=== PATIENT | female | born 2000 | race Caucasian/White ===

== ENCOUNTER → 2025-03-25 11:05 | Outpatient (BNV) | payer MEDICARE, MEDICAID, SELFPAY | PROVIDERS: Visit Provider Clinical Nurse Specialist Psychiatric/Mental Health | DX: F33.2 Major depressive disorder, recurrent severe without psychotic features (principal); F43.11 Post-traumatic stress disorder, acute | CPT/HCPCS: 99223 ==

== ENCOUNTER → 2025-06-08 15:00 | Outpatient (BNV) | payer MEDICARE, MEDICAID, SELFPAY | PROVIDERS: Visit Provider Psychiatry & Neurology Psychiatry | DX: F33.2 Major depressive disorder, recurrent severe without psychotic features (principal) | CPT/HCPCS: 90869 ==

== ENCOUNTER 2025-07-05 16:00 | Outpatient (RCR) | payer MEDICARE, MEDICAID, SELFPAY ==
--- NOTE | 2025-03-25 11:13 | W.PM.TMSCONS ---
History of Present Illness General Data Date of Service: 03/25/2025 Reason for consult: Depression History of Present Illness Pt is a 25 year old who self referred for TMS consult. she states she feels very depressed, low energy, can't focus or concentrate; reports loss of enjoyment, no motivation, no interest in activities; can't watch tv or read due to poor focus. she is easily tearful. she reports daily intrusive thoughts of suicide; she reports she has looping thoughts of I dont want to be here. she denies any plan or intent to harm or kill herself. she says she used to self harm but hasn't in years; she denies having ever made a suicide attempt. She tells me she has participated in 2 rounds of DBT therapy over the years. She reports when she was younger she was diagnosed with Bipolar Disorder but more recently her providers told her her diagnosis has changed to MDD and PTSD. I have reviewed her psychiatry notes from Krystal Benavides MD who confirms that pt diagnosis is MDD and PTSD and not Bipolar Disorder. The only hypomanic episode documented was in her teens and on a medication that activated her. Her PHQ9= 24 and her GAD7=11. She rates them both as extremely difficult. Her current psychiatric prescriber is Syd Mcgee APRN from [facility] and her therapist is Sridevi Marr with [facility]. Pt states she plans to switch psychiatry services to [facility] as well. Pt reports she has a remote history of migraines in HS but none in years. Pt denies history of seizures. Pt denies history of stroke, denies cardiac symptoms, and no head injury. Pt denies any metal implants such as pacemaker or cochlear implant, no history of facial surgery or neurosurgery Pt does report recent low TSH and has a n endocrinology consult pending. . Pt current medications : viibryd 20 mg daily, hydroxyzine, ativan and melatonin. Past failed meds: celexa- worsened depression, felt flat prozac-insomnia zoloft- insomnia, loss of appetite lamictal- numb but felt it helped with SI risperdal-numb seroquel- weight gain pristiq-increased anxiety trazodone-ineffective wellbutrin-not sure belsomra-ineffective focailin = anxiety clonidine- ineffective guanfacine- ineffective lunesta- ineffective Past Psychiatric History/Medication Trials: She has had depression and anxiety since age 12. She was in foster care from age [age] due to her brothers addiction and mother unable to protect her from his addiction. She reports foster care was very difficult and she was in 7 homes and different school in those 3 years. She reports multiple failed medication trials; She reports her depression wors[facility] in [facility] Narrative: no seizures no surgeries hx of migraines as teen - none in years no cardiac issues low TSH and currently having endocrinology work up Family History: grew up with M& F and older brother; fa 2016 due to cancer; mom alive and has stage 4 neuroendocrine cancer and 2018 had liver transplant. mom= anxiety and ? 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 grad HS has certificate in leadership development and community building in past Substance History: none Trauma History: very difficult time; fostercare during HS due to brother's drug use Meds/Allergies Meds Narrative: current medications ativan 0.5mg BID hydroxyzine 100mg at bedtime melatonin 3 mg daily viibryd 10 mg daily Allergies Allergies Allergy/AdvReac Type Severity Reaction Status Date / Time No Known Allergies Allergy Verified 04/05/25 11:37 Mental Status Exam Mental Status Exam Patient Appearance: Appropriate Patient Orientation: Person, Place, Time and Situation Level of Consciousness: Awake and Appropriate Patient Behavior: Appropriate, Cooperative and Good Eye Contact Mood Description: Depressed and Anxious Affect Description: Depressed and Anxious Patient Cognition Impaired: No Ability to Follow Directions: Good Speech Pattern: Clear, Appropriate and Spontaneous Speech Memory Description: Intact Hallucinations: None Delusions: Not Present Thought Process: Distracted and Rumination Thought Content: positive for Preoccupation and positive for Suicidal Ideation (no plan or intent; describes looping thoughts of not wanting to be here -pt feels they are intrusive thoughts ) Judgement: Fair Assessment & Plan Assessment & Plan (1) Major depressive disorder, recurrent severe without psychotic features: Status: Acute Code(s): F33.2 - Major depressive disorder, recurrent severe without psychotic features (2) PTSD (post-traumatic stress disorder): Status: Acute Code(s): F43.10 - Post-traumatic stress disorder, unspecified Plan Pt is a candidate for TMS due to level of depression symptoms and lack of response to medications. She has a remote hx of one hypomanic episode as a teen which was substance induced and no other episodesor signs of Bipolar. Pt is aware of risks with TMS if Bipolar and will work with providers to monitor; She has no contraindications for TMS: no seizures, no metal implants including no pacemaker or cochlear implants. Total time managing care of this patient today __75__ minutes. Patient educated on: TMS and therapeutic strategies Informed Consent: understands
--- NOTE | 2025-05-11 13:56 | HO.TMSDAILY2 ---
TMS Daily Progress Note Daily TMS Progress Note Date of Service: 05/10/25 Week #: 1 Treatment #(10-29): 1 PHQ-9 Pre-Treatment (-): 25 PHQ-9 Most Recent (10-26): 25 ANUP-7 Pre-Treatment (0-21): 14 ANUP-7 Most Recent (0-21): 14 Q-LES-Q-SF Most Recent: 25 Reviewed: TMS Mapping/Re-mapping completed (Pt very anxious but tolerated well) Verification: I have reviewed the TMS Executor Of Estate Note and agree with the contents. The patient remains a candidate to continue TMS treatment per protocol. Assessment and Plan (1) Major depressive disorder, recurrent severe without psychotic features: Status: Acute (2) PTSD (post-traumatic stress disorder): Status: Acute Plan MT 1.01 Pt tolerated mapping and first treatment well despite some anticipatry anxiety. She will start right side treatment tomorrow Continue with TMS plan of care
--- NOTE | 2025-05-24 16:19 | P.PNPS_ITS ---
TMS Daily Progress Note Daily TMS Progress Note Date of Service: 05/11/25 Week #: 1 Treatment #(10-29): 2 PHQ-9 Pre-Treatment (-): 25 PHQ-9 Most Recent (10-26): 25 ANUP-7 Pre-Treatment (0-21): 14 ANUP-7 Most Recent (0-21): 14 Q-LES-Q-SF Most Recent: 25 Reviewed: TMS Tech Note Reviewed Verification: I have reviewed the TMS Credentialing Specialist Note and agree with the contents. The patient remains a candidate to continue TMS treatment per protocol. Assessment and Plan (1) Major depressive disorder, recurrent severe without psychotic features: Status: Acute (2) PTSD (post-traumatic stress disorder): Status: Acute Plan Continue with TMS plan of care
--- NOTE | 2025-05-24 16:20 | P.PNPS_ITS ---
TMS Daily Progress Note Daily TMS Progress Note Date of Service: 05/13/25 Week #: 1 Treatment #(10-29): 4 PHQ-9 Pre-Treatment (-): 25 PHQ-9 Most Recent (10-26): 25 ANUP-7 Pre-Treatment (0-21): 14 ANUP-7 Most Recent (0-21): 14 Q-LES-Q-SF Most Recent: 25 Reviewed: TMS Tech Note Reviewed Verification: I have reviewed the TMS Hand Washer Note and agree with the contents. The patient remains a candidate to continue TMS treatment per protocol. Assessment and Plan (1) Major depressive disorder, recurrent severe without psychotic features: Status: Acute (2) PTSD (post-traumatic stress disorder): Status: Acute Plan Continue with TMS plan of care
--- NOTE | 2025-06-01 14:05 | HO.TMSDAILY2 ---
TMS Daily Progress Note Daily TMS Progress Note Date of Service: 05/27/25 Week #: 3 Treatment #(10-29): 12 PHQ-9 Pre-Treatment (-): 25 PHQ-9 Most Recent (10-26): 23 ANUP-7 Pre-Treatment (0-21): 14 ANUP-7 Most Recent (0-21): 14 Q-LES-Q-SF Most Recent: 25 Reviewed: TMS Tech Note Reviewed Verification: I have reviewed the TMS Graphic Design Professor Note and agree with the contents. The patient remains a candidate to continue TMS treatment per protocol. Assessment and Plan (1) Major depressive disorder, recurrent severe without psychotic features: Status: Acute (2) PTSD (post-traumatic stress disorder): Status: Acute Plan Met with patient today in person as she had some concerns and questions about medications; We discussed options and I answered questions she had; She will follow up with her outpt provider re any medication changes. Continue with TMS plan of care Total time managing care of this patient today: 25 minutes.
--- NOTE | 2025-06-08 13:17 | HO.TMSDAILY2 ---
TMS Daily Progress Note Daily TMS Progress Note Date of Service: 06/01/25 Week #: 3 Treatment #(-): 14 PHQ-9 Pre-Treatment (1-): 25 PHQ-9 Most Recent (10-26): 21 ANUP-7 Pre-Treatment (0-21): 14 ANUP-7 Most Recent (0-21): 13 Q-LES-Q-SF Most Recent: 25 Reviewed: TMS Tech Note Reviewed Verification: I have reviewed the TMS Brim Pouncer Machine Operator Note and agree with the contents. The patient remains a candidate to continue TMS treatment per protocol. Assessment and Plan (1) Major depressive disorder, recurrent severe without psychotic features: Status: Acute (2) PTSD (post-traumatic stress disorder): Status: Acute Plan Continue with TMS plan of care Total time managing care of this patient today: 25 minutes.
--- NOTE | 2025-06-08 13:19 | HO.TMSDAILY2 ---
TMS Daily Progress Note Daily TMS Progress Note Date of Service: 06/03/25 Week #: 4 Treatment #(10-29): 16 PHQ-9 Pre-Treatment (-): 25 PHQ-9 Most Recent (10-26): 21 ANUP-7 Pre-Treatment (0-21): 14 ANUP-7 Most Recent (0-21): 13 Q-LES-Q-SF Most Recent: 25 Reviewed: TMS Tech Note Reviewed Verification: I have reviewed the TMS Jewelry Bench Worker Note and agree with the contents. The patient remains a candidate to continue TMS treatment per protocol. Assessment and Plan (1) Major depressive disorder, recurrent severe without psychotic features: Status: Acute (2) PTSD (post-traumatic stress disorder): Status: Acute Plan Pt will be remapped due to her concerns of not improving . Continue with TMS plan of care Total time managing care of this patient today: 25 minutes.
--- NOTE | 2025-06-08 22:17 | P.PNPS_ITS ---
TMS Daily Progress Note Daily TMS Progress Note Date of Service: 06/08/25 Week #: 4 Treatment #(10-29): 16 PHQ-9 Pre-Treatment (-): 25 PHQ-9 Most Recent (10-26): 21 ANUP-7 Pre-Treatment (0-21): 14 ANUP-7 Most Recent (0-21): 13 Q-LES-Q-SF Most Recent: 25 Reviewed: TMS Mapping/Re-mapping completed Verification: I have reviewed the TMS Risk Consulting Treasury Director Note and agree with the contents. The patient remains a candidate to continue TMS treatment per protocol. Assessment and Plan (1) Major depressive disorder, recurrent severe without psychotic features: Status: Acute (2) PTSD (post-traumatic stress disorder): Status: Acute Plan pt tolerated remapping some changes to position and MT . Discussed with pt sedation and unlikely all day sec to tms discussed with char Nuñez lowering hydroxyzine 100 mg
--- NOTE | 2025-06-21 10:37 | P.PNPS_ITS ---
TMS Daily Progress Note Daily TMS Progress Note Date of Service: 05/20/25 Week #: 2 Treatment #(10-29): 8 PHQ-9 Pre-Treatment (-): 25 PHQ-9 Most Recent (10-26): 24 ANUP-7 Pre-Treatment (0-): 14 ANUP-7 Most Recent (0-): 13 Q-LES-Q-SF Most Recent: 25 Reviewed: TMS Tech Note Reviewed Verification: I have reviewed the TMS Entertainment Dancer Note and agree with the contents. The patient remains a candidate to continue TMS treatment per protocol. Assessment and Plan (1) Major depressive disorder, recurrent severe without psychotic features: Status: Acute Plan Has a difficult time with MT being inc feels uncomfortable
--- NOTE | 2025-06-21 10:37 | HO.TMSDAILY2 ---
TMS Daily Progress Note Daily TMS Progress Note Date of Service: 05/12/25 Week #: 1 Treatment #(10-29): 3 PHQ-9 Pre-Treatment (-): 25 PHQ-9 Most Recent (10-26): 25 ANUP-7 Pre-Treatment (0-21): 14 AUNP-7 Most Recent (0-21): 14 Q-LES-Q-SF Most Recent: 25 Reviewed: TMS Tech Note Reviewed Verification: I have reviewed the TMS Behavioral Technician Note and agree with the contents. The patient remains a candidate to continue TMS treatment per protocol. Assessment and Plan (1) Major depressive disorder, recurrent severe without psychotic features: Status: Acute (2) PTSD (post-traumatic stress disorder): Status: Acute Plan pt flat cooperative with tx no complaints of side effects
--- NOTE | 2025-06-21 10:37 | HO.TMSDAILY2 ---
TMS Daily Progress Note Daily TMS Progress Note Date of Service: 05/14/25 Week #: 1 Treatment #(10-29): 5 PHQ-9 Pre-Treatment (-): 25 PHQ-9 Most Recent (10-26): 25 ANUP-7 Pre-Treatment (0-21): 14 ANUP-7 Most Recent (0-21): 14 Q-LES-Q-SF Most Recent: 25 Reviewed: TMS Tech Note Reviewed Verification: I have reviewed the TMS School Business Manager Note and agree with the contents. The patient remains a candidate to continue TMS treatment per protocol. Assessment and Plan (1) Major depressive disorder, recurrent severe without psychotic features: Status: Acute (2) PTSD (post-traumatic stress disorder): Status: Acute Plan Pt tolerating tx significant depression
--- NOTE | 2025-06-21 10:37 | HO.TMSDAILY2 ---
TMS Daily Progress Note Daily TMS Progress Note Date of Service: 05/18/25 Week #: 2 Treatment #(10-29): 16 PHQ-9 Pre-Treatment (-): 25 PHQ-9 Most Recent (10-26): 25 ANUP-7 Pre-Treatment (0-21): 14 ANUP-7 Most Recent (0-21): 14 Q-LES-Q-SF Most Recent: 25 Reviewed: TMS Tech Note Reviewed Verification: I have reviewed the TMS Title Department Manager Note and agree with the contents. The patient remains a candidate to continue TMS treatment per protocol. Assessment and Plan (1) Major depressive disorder, recurrent severe without psychotic features: Status: Acute (2) PTSD (post-traumatic stress disorder): Status: Acute Plan cont plan of care L/R tx
--- NOTE | 2025-06-21 10:37 | HO.TMSDAILY2 ---
TMS Daily Progress Note Daily TMS Progress Note Date of Service: 05/19/25 Week #: 2 Treatment #(10-29): 7 PHQ-9 Pre-Treatment (-): 25 PHQ-9 Most Recent (10-26): 24 ANUP-7 Pre-Treatment (0-21): 14 ANUP-7 Most Recent (0-21): 13 Q-LES-Q-SF Most Recent: 25 Reviewed: TMS Tech Note Reviewed Verification: I have reviewed the TMS Car Pilot Note and agree with the contents. The patient remains a candidate to continue TMS treatment per protocol. Assessment and Plan (1) Major depressive disorder, recurrent severe without psychotic features: Status: Acute (2) PTSD (post-traumatic stress disorder): Status: Acute Plan pt will now be able to see theraoust on sat
--- NOTE | 2025-06-21 10:37 | HO.TMSDAILY2 ---
TMS Daily Progress Note Daily TMS Progress Note Date of Service: 05/21/25 Week #: 2 Treatment #(10-29): 9 PHQ-9 Pre-Treatment (-): 25 PHQ-9 Most Recent (10-26): 24 ANUP-7 Pre-Treatment (0-21): 14 ANUP-7 Most Recent (0-21): 13 Q-LES-Q-SF Most Recent: 25 Reviewed: TMS Tech Note Reviewed Verification: I have reviewed the TMS Ceramics Engineer Note and agree with the contents. The patient remains a candidate to continue TMS treatment per protocol. Assessment and Plan (1) Major depressive disorder, recurrent severe without psychotic features: Status: Acute (2) PTSD (post-traumatic stress disorder): Status: Acute Plan Patient's MT % what 105 has been having a hard time tolerating more rapid increases
--- NOTE | 2025-06-21 10:38 | HO.TMSDAILY2 ---
TMS Daily Progress Note Daily TMS Progress Note Date of Service: 05/26/25 Week #: 3 Treatment #(10-29): 11 PHQ-9 Pre-Treatment (-): 25 PHQ-9 Most Recent (10-26): 23 ANUP-7 Pre-Treatment (0-21): 14 ANUP-7 Most Recent (0-): 13 Q-LES-Q-SF Most Recent: 25 Reviewed: TMS Tech Note Reviewed Verification: I have reviewed the TMS Solar Energy System Installer Note and agree with the contents. The patient remains a candidate to continue TMS treatment per protocol. Assessment and Plan (1) Major depressive disorder, recurrent severe without psychotic features: Status: Acute Plan Continue TMS treatment plan patient was able to increase the MT percentage had pretreated with Tylenol no major improvement to this point
--- NOTE | 2025-06-21 10:38 | P.PNPS_ITS ---
TMS Daily Progress Note Daily TMS Progress Note Date of Service: 05/28/25 Week #: 3 Treatment #(10-29): 13 PHQ-9 Pre-Treatment (-): 25 PHQ-9 Most Recent (10-26): 23 ANUP-7 Pre-Treatment (0-21): 14 ANUP-7 Most Recent (0-21): 14 Q-LES-Q-SF Most Recent: 25 Reviewed: TMS Tech Note Reviewed Verification: I have reviewed the TMS Clinical Mental Health Counselor Note and agree with the contents. The patient remains a candidate to continue TMS treatment per protocol. Assessment and Plan (1) Major depressive disorder, recurrent severe without psychotic features: Status: Acute Plan Patient tolerating treatment no significant improvement to this point. Optimistic about upcoming move to a new housing situation
--- NOTE | 2025-06-21 10:38 | HO.TMSDAILY2 ---
TMS Daily Progress Note Daily TMS Progress Note Date of Service: 06/02/25 Week #: 3 Treatment #(10-29): 15 PHQ-9 Pre-Treatment (-): 25 PHQ-9 Most Recent (10-26): 21 ANUP-7 Pre-Treatment (0-21): 14 ANUP-7 Most Recent (0-21): 13 Q-LES-Q-SF Most Recent: 25 Reviewed: TMS Tech Note Reviewed Verification: I have reviewed the TMS Director Global Intelligence Note and agree with the contents. The patient remains a candidate to continue TMS treatment per protocol. Assessment and Plan (1) Major depressive disorder, recurrent severe without psychotic features: Status: Acute Plan No significant adverse effects patient tolerating treatment no significant improvement to this point
--- NOTE | 2025-06-21 10:38 | HO.TMSDAILY2 ---
TMS Daily Progress Note Daily TMS Progress Note Date of Service: 06/04/25 Week #: 4 Treatment #(10-29): 17 PHQ-9 Pre-Treatment (-): 25 PHQ-9 Most Recent (10-26): 21 ANUP-7 Pre-Treatment (0-21): 14 ANUP-7 Most Recent (0-21): 13 Q-LES-Q-SF Most Recent: 25 Reviewed: TMS Tech Note Reviewed Verification: I have reviewed the TMS Corporate Statistical Financial Analyst Note and agree with the contents. The patient remains a candidate to continue TMS treatment per protocol. Assessment and Plan (1) Major depressive disorder, recurrent severe without psychotic features: Status: Acute Plan Patient tolerating treatment with some level of discomfort MT % 120 patient asking for consideration of Re mapping given lack of progress to this point
--- NOTE | 2025-06-23 15:53 | HO.TMSDAILY2 ---
TMS Daily Progress Note Daily TMS Progress Note Date of Service: 06/23/25 Week #: 6 Treatment #(10-29): 29 PHQ-9 Pre-Treatment (-): 25 PHQ-9 Most Recent (10-26): 22 ANUP-7 Pre-Treatment (0-21): 14 ANUP-7 Most Recent (0-21): 12 Q-LES-Q-SF Most Recent: 25 Reviewed: TMS Tech Note Reviewed Verification: I have reviewed the TMS Machine Tailer Note and agree with the contents. The patient remains a candidate to continue TMS treatment per protocol. Assessment and Plan (1) Major depressive disorder, recurrent severe without psychotic features: Status: Acute
--- NOTE | 2025-07-19 09:51 | HO.TMSDAILY2 ---
TMS Daily Progress Note Daily TMS Progress Note Date of Service: 05/24/25 Week #: 2 Treatment #(10-29): 10 PHQ-9 Pre-Treatment (-): 25 PHQ-9 Most Recent (10-26): 23 ANUP-7 Pre-Treatment (0-21): 14 ANUP-7 Most Recent (0-21): 14 CGI-I Most Recent: 0 = Not Assessed Q-LES-Q-SF Most Recent: 25 Reviewed: TMS Tech Note Reviewed Verification: I have reviewed the TMS Die Cutter Apprentice Note and agree with the contents. The patient remains a candidate to continue TMS treatment per protocol. Assessment and Plan (1) Major depressive disorder, recurrent severe without psychotic features: Status: Acute Plan Continue TMS treatment plan
--- NOTE | 2025-07-19 09:52 | P.PNPS_ITS ---
TMS Daily Progress Note Daily TMS Progress Note Date of Service: 06/10/25 Week #: 4 Treatment #(10-29): 20 PHQ-9 Pre-Treatment (1-): 25 PHQ-9 Most Recent (10-26): 22 ANUP-7 Pre-Treatment (0-21): 14 ANUP-7 Most Recent (0-21): 13 CGI-I Most Recent: 0 = Not Assessed Q-LES-Q-SF Most Recent: 25 Reviewed: TMS Tech Note Reviewed Verification: I have reviewed the TMS Project Structural Engineer Note and agree with the contents. The patient remains a candidate to continue TMS treatment per protocol. Assessment and Plan (1) Major depressive disorder, recurrent severe without psychotic features: Status: Acute Plan Continue TMS treatment plan
--- NOTE | 2025-07-19 09:54 | P.PNPS_ITS ---
TMS Daily Progress Note Daily TMS Progress Note Date of Service: 06/14/25 Week #: 5 Treatment #(10-29): 22 PHQ-9 Pre-Treatment (1-): 25 PHQ-9 Most Recent (10-26): 23 ANUP-7 Pre-Treatment (0-21): 14 ANUP-7 Most Recent (0-21): 14 CGI-I Most Recent: 0 = Not Assessed Q-LES-Q-SF Most Recent: 25 Reviewed: TMS Tech Note Reviewed Verification: I have reviewed the TMS Certified Medical Assistant Note and agree with the contents. The patient remains a candidate to continue TMS treatment per protocol. Assessment and Plan (1) Major depressive disorder, recurrent severe without psychotic features: Status: Acute Plan Continue TMS treatment plan
--- NOTE | 2025-07-19 09:55 | P.PNPS_ITS ---
TMS Daily Progress Note Daily TMS Progress Note Date of Service: 06/17/25 Week #: 5 Treatment #(10-29): 25 PHQ-9 Pre-Treatment (1-): 25 PHQ-9 Most Recent (10-26): 23 ANUP-7 Pre-Treatment (0-21): 14 ANUP-7 Most Recent (0-21): 14 CGI-I Most Recent: 0 = Not Assessed Q-LES-Q-SF Most Recent: 25 Reviewed: TMS Tech Note Reviewed Verification: I have reviewed the TMS Advertising Account Representative Note and agree with the contents. The patient remains a candidate to continue TMS treatment per protocol. Assessment and Plan (1) Major depressive disorder, recurrent severe without psychotic features: Status: Acute Plan Continue TMS treatment plan
--- NOTE | 2025-07-19 09:55 | P.PNPS_ITS ---
TMS Daily Progress Note Daily TMS Progress Note Date of Service: 06/15/25 Week #: 5 Treatment #(10-29): 23 PHQ-9 Pre-Treatment (1-): 25 PHQ-9 Most Recent (10-26): 23 ANUP-7 Pre-Treatment (0-21): 14 ANUP-7 Most Recent (0-21): 14 CGI-I Most Recent: 0 = Not Assessed Q-LES-Q-SF Most Recent: 25 Reviewed: TMS Tech Note Reviewed Verification: I have reviewed the TMS Operations Business Partner Note and agree with the contents. The patient remains a candidate to continue TMS treatment per protocol. Assessment and Plan (1) Major depressive disorder, recurrent severe without psychotic features: Status: Acute Plan Continue TMS treatment plan
--- NOTE | 2025-07-19 09:56 | HO.TMSDAILY2 ---
TMS Daily Progress Note Daily TMS Progress Note Date of Service: 06/21/25 Week #: 6 Treatment #(10-29): 27 PHQ-9 Pre-Treatment (-): 25 PHQ-9 Most Recent (10-26): 22 ANUP-7 Pre-Treatment (0-21): 14 ANUP-7 Most Recent (0-21): 12 CGI-I Most Recent: 0 = Not Assessed Q-LES-Q-SF Most Recent: 25 Reviewed: TMS Tech Note Reviewed Verification: I have reviewed the TMS Linux Unix Administrator Note and agree with the contents. The patient remains a candidate to continue TMS treatment per protocol. Assessment and Plan (1) Major depressive disorder, recurrent severe without psychotic features: Status: Acute Plan Continue TMS treatment plan
--- NOTE | 2025-07-19 09:57 | HO.TMSDAILY2 ---
TMS Daily Progress Note Daily TMS Progress Note Date of Service: 06/22/25 Week #: 6 Treatment #(10-29): 28 PHQ-9 Pre-Treatment (-): 25 PHQ-9 Most Recent (10-26): 22 ANUP-7 Pre-Treatment (0-21): 14 ANUP-7 Most Recent (0-21): 12 CGI-I Most Recent: 0 = Not Assessed Q-LES-Q-SF Most Recent: 25 Reviewed: TMS Tech Note Reviewed Verification: I have reviewed the TMS Commutator Presser Note and agree with the contents. The patient remains a candidate to continue TMS treatment per protocol. Assessment and Plan (1) Major depressive disorder, recurrent severe without psychotic features: Status: Acute Plan Continue TMS treatment plan
--- NOTE | 2025-07-19 09:58 | HO.TMSDAILY2 ---
TMS Daily Progress Note Daily TMS Progress Note Date of Service: 06/24/25 Week #: 6 Treatment #(-): 30 PHQ-9 Pre-Treatment (-): 25 PHQ-9 Most Recent (10-26): 22 ANUP-7 Pre-Treatment (0-21): 14 ANUP-7 Most Recent (0-21): 12 CGI-I Most Recent: 0 = Not Assessed Q-LES-Q-SF Most Recent: 25 Reviewed: TMS Tech Note Reviewed Verification: I have reviewed the TMS Rhinologist Note and agree with the contents. The patient remains a candidate to continue TMS treatment per protocol. Assessment and Plan (1) Major depressive disorder, recurrent severe without psychotic features: Status: Acute Plan Continue TMS treatment plan
--- NOTE | 2025-08-07 21:29 | P.PNPS_ITS ---
TMS Daily Progress Note Daily TMS Progress Note Date of Service: 06/09/25 Week #: 4 Treatment #(10-29): 19 PHQ-9 Pre-Treatment (1-): 25 PHQ-9 Most Recent (10-26): 22 ANUP-7 Pre-Treatment (0-21): 14 ANUP-7 Most Recent (0-21): 14 CGI-I Most Recent: 0 = Not Assessed Q-LES-Q-SF Most Recent: 25 Reviewed: TMS Tech Note Reviewed Verification: I have reviewed the TMS Microfabrication Engineer Manager Note and agree with the contents. The patient remains a candidate to continue TMS treatment per protocol. Assessment and Plan (1) Major depressive disorder, recurrent severe without psychotic features: Status: Acute Plan Continue TMS treatment plan remap completed yesterday questions answered
--- NOTE | 2025-08-07 21:35 | HO.TMSDAILY2 ---
TMS Daily Progress Note Daily TMS Progress Note Date of Service: 06/11/25 Week #: 5 Treatment #(10-29): 21` PHQ-9 Pre-Treatment (-): 25 PHQ-9 Most Recent (10-26): 22 ANUP-7 Pre-Treatment (0-21): 14 ANUP-7 Most Recent (0-21): 14 CGI-I Most Recent: 0 = Not Assessed Q-LES-Q-SF Most Recent: 25 Reviewed: TMS Tech Note Reviewed Verification: I have reviewed the TMS Biazzi Nitrator Operator Note and agree with the contents. The patient remains a candidate to continue TMS treatment per protocol. Assessment and Plan (1) Major depressive disorder, recurrent severe without psychotic features: Status: Acute Plan pt with gradual inc m % frustrated no clear improvement
--- NOTE | 2025-08-07 22:31 | HO.TMSDAILY2 ---
TMS Daily Progress Note Daily TMS Progress Note Date of Service: 06/16/25 Week #: 5 Treatment #(10-29): 24 PHQ-9 Pre-Treatment (-): 25 PHQ-9 Most Recent (10-26): 22 ANUP-7 Pre-Treatment (0-21): 14 ANUP-7 Most Recent (0-21): 14 CGI-I Most Recent: 0 = Not Assessed Q-LES-Q-SF Most Recent: 25 Reviewed: TMS Tech Note Reviewed Verification: I have reviewed the TMS Inspector Handbag Frames Note and agree with the contents. The patient remains a candidate to continue TMS treatment per protocol. Assessment and Plan (1) Major depressive disorder, recurrent severe without psychotic features: Status: Acute Plan Patient continues to be anxious ruminating
--- NOTE | 2025-08-07 22:37 | HO.TMSDAILY2 ---
TMS Daily Progress Note Daily TMS Progress Note Date of Service: 06/18/25 Week #: 6 Treatment #(10-29): 26 PHQ-9 Pre-Treatment (-): 25 PHQ-9 Most Recent (10-26): 22 ANUP-7 Pre-Treatment (0-21): 14 ANUP-7 Most Recent (0-21): 14 CGI-I Most Recent: 0 = Not Assessed Q-LES-Q-SF Most Recent: 25 Reviewed: TMS Tech Note Reviewed Verification: I have reviewed the TMS Sustainability Executive Director Note and agree with the contents. The patient remains a candidate to continue TMS treatment per protocol. Assessment and Plan (1) Major depressive disorder, recurrent severe without psychotic features: Status: Acute Plan Patient more reflective less agitated
--- NOTE | 2025-08-07 22:46 | HO.TMSDAILY2 ---
TMS Daily Progress Note Daily TMS Progress Note Date of Service: 06/25/25 Week #: 7 Treatment #(10-29): 31 PHQ-9 Pre-Treatment (-): 25 PHQ-9 Most Recent (10-26): 22 ANUP-7 Pre-Treatment (0-21): 14 ANUP-7 Most Recent (0-21): 14 CGI-I Most Recent: 0 = Not Assessed Q-LES-Q-SF Most Recent: 25 Reviewed: TMS Tech Note Reviewed Verification: I have reviewed the TMS Project Manager/Design Manager Note and agree with the contents. The patient remains a candidate to continue TMS treatment per protocol. Assessment and Plan (1) Major depressive disorder, recurrent severe without psychotic features: Status: Acute Plan Patient somewhat improved does tend to ruminate still with significant depressive symptoms
--- NOTE | 2025-08-07 22:55 | HO.TMSDAILY2 ---
TMS Daily Progress Note Daily TMS Progress Note Date of Service: 06/29/25 Week #: 7 Treatment #(10-29): 32 PHQ-9 Pre-Treatment (-): 25 PHQ-9 Most Recent (10-26): 22 ANUP-7 Pre-Treatment (0-21): 14 ANUP-7 Most Recent (0-21): 14 CGI-I Most Recent: 0 = Not Assessed Q-LES-Q-SF Most Recent: 25 Reviewed: TMS Tech Note Reviewed Verification: I have reviewed the TMS Aeronautical Test Engineer Note and agree with the contents. The patient remains a candidate to continue TMS treatment per protocol. Assessment and Plan (1) Major depressive disorder, recurrent severe without psychotic features: Status: Acute Plan Patient excited about upcoming move to new apartment continue plan of care
--- NOTE | 2025-08-07 23:01 | HO.TMSDAILY2 ---
TMS Daily Progress Note Daily TMS Progress Note Date of Service: 06/30/25 Week #: 7 Treatment #(10-29): 33 PHQ-9 Pre-Treatment (-): 25 PHQ-9 Most Recent (10-26): 23 ANUP-7 Pre-Treatment (0-21): 14 ANUP-7 Most Recent (0-21): 14 CGI-I Most Recent: 0 = Not Assessed Q-LES-Q-SF Most Recent: 25 Reviewed: TMS Tech Note Reviewed Verification: I have reviewed the TMS Alteration Specialist Note and agree with the contents. The patient remains a candidate to continue TMS treatment per protocol. Assessment and Plan (1) Major depressive disorder, recurrent severe without psychotic features: Status: Acute Plan Continue plan of care no clear change in PHQ-9 to this point no significant adverse effects
--- NOTE | 2025-08-07 23:10 | P.PNPS_ITS ---
TMS Daily Progress Note Daily TMS Progress Note Date of Service: 07/02/25 Week #: 8 Treatment #(10-29): 35 PHQ-9 Pre-Treatment (-): 25 PHQ-9 Most Recent (10-26): 23 ANUP-7 Pre-Treatment (0-21): 14 ANUP-7 Most Recent (0-21): 14 CGI-I Most Recent: 0 = Not Assessed Q-LES-Q-SF Most Recent: 25 Reviewed: TMS Tech Note Reviewed Verification: I have reviewed the TMS Oracle Scm Consultant Note and agree with the contents. The patient remains a candidate to continue TMS treatment per protocol. Assessment and Plan (1) Major depressive disorder, recurrent severe without psychotic features: Status: Acute Plan Patient states she starting to feel somewhat improved family noticed
--- NOTE | 2025-08-07 23:19 | HO.TMSDAILY2 ---
TMS Daily Progress Note Daily TMS Progress Note Date of Service: 07/05/25 Week #: 8 Treatment #(10-29): 36 PHQ-9 Pre-Treatment (1-): 25 PHQ-9 Most Recent (10-26): 23 ANUP-7 Pre-Treatment (0-21): 14 ANUP-7 Most Recent (0-21): 14 CGI-I Most Recent: 0 = Not Assessed Q-LES-Q-SF Most Recent: 25 Reviewed: TMS Tech Note Reviewed Verification: I have reviewed the TMS Decorative Engraver Apprentice Note and agree with the contents. The patient remains a candidate to continue TMS treatment per protocol. Assessment and Plan (1) Major depressive disorder, recurrent severe without psychotic features: Status: Acute Plan Patient completed treatment with some effect verbally PHQ-9 not changed but patient states she is feeling better unclear the paradox
== END 2025-07-05 16:30 | disposition home or self-care (01) ==
LOC: HO.PTMS 16:00
PROVIDERS: Visit Provider Clinical Nurse Specialist Psychiatric/Mental Health
DX: F33.2 Major depressive disorder, recurrent severe without psychotic features (principal); F43.10 Post-traumatic stress disorder, unspecified
CPT/HCPCS: 90867; 90868; 90869